=== PATIENT | female | born 1980 | race Hispanic/Latino ===

== ENCOUNTER 2018-08-25 13:05 | Observation (INO) | payer BC ==
[~2018-08-25] VITALS: Ht 154.9 cm; Wt 96.5 kg
[2018-08-25 13:15] VITALS: BP 136/89
[2018-08-25 14:21] LABS: HEMOGLOBIN A1C 9.1 % (4.0-6.0)
[2018-08-25 15:46] VITALS: BP 139/75
[2018-08-25] MEDS ORDERED: INSULIN HUMULIN R 100 UNIT/ML 3ML SQ SCH (16:30)
[2018-08-25] MEDS ORDERED: INSULIN NPH 100 UNIT/ML 3ML SQ SCH (16:30)
[2018-08-25] MEDS ORDERED: METF-446 PO (17:38)
[2018-08-25 19:38] VITALS: BP 122/72
[2018-08-25 23:26] VITALS: BP 107/61
--- NOTE | 2018-08-25 23:35 | NUR ---
ABD CRAMPING PATIENT VERBALIZED SHE HAS OCC PELVIC CRAMPING, VERBALIZED SHE HAD CRAMPING AND VAGINAL SPOTTING APPROX 2 WEEKS AGO, INSTRUCTED TO CALL IF SHE CONTINUES W/ CRAMPING OR VAGINAL SPOTTING Addendum: 08/26/18 at 0229 by JAMES TRACEY LVN Amended: Links added.
[2018-08-26 04:22] VITALS: BP 121/58
[2018-08-26 07:16] VITALS: BP 117/67
[2018-08-26] MEDS ORDERED: INSULIN NPH 100 UNIT/ML 3ML SQ SCH ×2 (07:30→16:30)
[2018-08-26] MEDS ORDERED: INSULIN HUMULIN R 100 UNIT/ML 3ML SQ SCH ×2 (07:30→16:30)
--- NOTE | 2018-08-26 07:55 | NUR ---
assessment: RECEIVED RESTING IN BED, EXPLAINED POC AND UNDERSTANDING VERBALIZED. CALL VILLATORO AT HER SIDE.
--- NOTE | 2018-08-26 08:06 | NUR ---
DIABETIC: PT ABLE TO DRAW UP INSULIN USING ASEPTIC TECH AND CORRECT METHOD, ANSWERED ALL HER QUESTIONS AND REASSURANCE GIVEN. 1800 ADA DIET SERVED.
--- NOTE | 2018-08-26 11:15 | NUR ---
DIABETIC: CHIEF SERVICE OBSERVER HERE TO TEACH PT .
--- NOTE | 2018-08-26 11:20 | NUR ---
ASSESSMENT: Alexi FERGUSON CNM ASSESSED PT AND DISCUSSED POC, INSULIN ADJUSTMENTS. VERBALIZED UNDERSTANDING.
[2018-08-26 11:25] VITALS: BP 118/90
--- NOTE | 2018-08-26 11:50 | NUR ---
Gestational diabetes diet education: Printed materials provided on Gestational diabetes. Printed materials reviewed with pt in detail. Pt has been educated on carbohydrate counting, service size, portion control and nutrition label reading tips. Pt has been advised to remove sweets and fruit juice from diet and consume high biological value protein such as poultry, fish and eggs with a large consumption of non-starchy vegetables. Pt verbalize understanding. Pt with multiple dietary questions, all questions answered by RD. Recommendations: Continue encouraging water intake. Discourage juice intake. Consult RD as nutrition concerns arise. Addendum: 08/26/18 at [address] RD Amended: Links added.
--- NOTE | 2018-08-26 13:30 | NUR ---
ACTIVITY: AMBULATING IN CYR, NO C/O OF VOICED.
--- NOTE | 2018-08-26 16:10 | NUR ---
ACTIVITY: AMB IN HALLWAY.
[2018-08-26 16:45] VITALS: BP 140/83
--- NOTE | 2018-08-26 16:52 | NUR ---
DIABETIC: PT ABLE TO CHECK HER BS AND ADM INSULIN USING CORRECT, ASEPTIC TECH.
[2018-08-26 19:40] VITALS: BP 135/65
[2018-08-27 00:01] VITALS: BP 131/73
[2018-08-27 04:24] VITALS: BP 130/66
[2018-08-27] MEDS ORDERED: INSULIN HUMULIN R 100 UNIT/ML 3ML SQ SCH (07:30)
[2018-08-27] MEDS ORDERED: INSULIN NPH 100 UNIT/ML 3ML SQ SCH (07:30)
[2018-08-27 07:43] VITALS: BP 108/69
--- NOTE | 2018-08-27 09:00 | NUR ---
Dr. Romero rounded and discharged pt to home. Script for Insulins given and patient verbalized understanding instructions given and indicated to Dr. Romero that she had no problems self injecting self.
--- NOTE | 2018-08-27 11:15 | NUR ---
Discharge instructions given and patient verbalized understanding instructions given and demonstrated understanding mixing of insulins and self administering of insulin injections.
[2018-08-27 11:25] VITALS: BP 139/79
--- NOTE | 2018-08-27 11:30 | NUR ---
Patient was escorted to family vehicle in stable condition. Patient denies pain.
== END 2018-08-27 11:30 | disposition home or self-care (01) ==
LOC: WSH 13:05
PROVIDERS: ADMIT Obstetrics & Gynecology; ATTEND Obstetrics & Gynecology
DX: O24.111 Pre-existing type 2 diabetes mellitus, in pregnancy, first trimester (principal); O09.513 Supervision of elderly primigravida, third trimester; Z3A.01 Less than 8 weeks gestation of pregnancy
CPT/HCPCS: 82948 ×12; 83036; 96372 ×3; A4510; G0378 ×47; J1815 ×8

== ENCOUNTER 2023-09-15 17:30 | Emergency (ER) | payer BC ==
[~2023-09-15] VITALS: Ht 154.9 cm; Wt 89.4 kg
[~2023-09-15 17:30] MED LIST: METF-446 PO
[2023-09-15 18:11] LABS: BASOPHILS # (AUTO) 0.04 K/uL (0.00-0.20); BASOPHILS % (AUTO) 0.5 % (0.0-5.0); EOSINOPHILS # (AUTO) 0.23 K/uL (0.00-0.70); EOSINOPHILS % (AUTO) 2.6 % (0.0-8.0); HEMATOCRIT 40.1 % (36-48); IMMATURE GRANULOCYTE ABSOLUTE 0.01 K/uL (0-1); LYMPHOCYTES # (AUTO) 2.1 K/uL (1.0-4.8); LYMPHOCYTES % (AUTO) 23.6 % (21.0-51.0); MEAN CORPUSCULAR HEMOGLOBIN 29.7 pg (27.0-33.0); MEAN CORPUSCULAR HGB CONC 34.2 g/dL (32.0-36.0); MEAN CORPUSCULAR VOLUME 86.8 fL (79-99); MONOCYTES # (AUTO) 0.8 K/uL (0.1-1.0); MONOCYTES % (AUTO) 9.1 % (3.0-13.0); NEUTROPHILS # (AUTO) 5.7 K/uL (1.8-7.7); NEUTROPHILS % (AUTO) 64.1 % (40.0-77.0); PLATELET COUNT (AUTO) 285 K/uL (130-400); RED BLOOD CELL COUNT(AUTO) 4.62 MIL/uL (4.00-5.50); RED CELL DISTRIBUTION WIDTH 12.3 % (11.0-15.5); WHITE BLOOD COUNT (AUTO) 8.8 K/uL (4.8-10.8)
[2023-09-15 18:22] LABS: CREATININE 0.7 mg/dL (0.5-1.0); POTASSIUM 3.8 mmol/L (3.5-5.1)
[2023-09-15 18:32] LABS: ALBUMIN 3.6 g/dL (3.5-5.0); MAGNESIUM 1.9 mg/dL (1.80-2.40); TOTAL PROTEIN, SERUM 7.9 g/dL (6.0-8.3)
[2023-09-15] MEDS ORDERED: IBUP-2071 PO (18:54)
[2023-09-15] MEDS: LISINOPRIL 10 MG TABLET ONE (19:03)
[2023-09-15] MEDS: LISINOPRIL 10 MG TABLET PO ONE (19:05)
[2023-09-15 19:49] VITALS: BP 159/81; PULSE 79; RESP 18; O2SAT 99
== END 2023-09-15 19:51 | disposition home or self-care (01) ==
LOC: EDH 17:30
DX: R20.2 Paresthesia of skin (principal); M25.512 Pain in left shoulder; M79.642 Pain in left hand; I10 Essential (primary) hypertension; E11.9 Type 2 diabetes mellitus without complications; E78.00 Pure hypercholesterolemia, unspecified; Z90.89 Acquired absence of other organs; Z98.890 Other specified postprocedural states
CPT/HCPCS: 36415; 71045; 80053; 83735; 84484; 85025; 93005